=== PATIENT | male | born 2000 | race Two or more races ===

== ENCOUNTER 2024-12-05 13:59 | Emergency (ER) | payer MEDICAID, SELFPAY ==
[2024-12-05 14:19] VITALS: BP 120/79; PULSE 89; RESP 18; TEMP 36.9; O2SAT 99
--- NOTE | 2024-12-05 15:29 | PD.EDADULT ---
ED General RME/HPI General Chief complaint: Flu Like Symptoms Stated complaint: SEVERE NASAL CONGESTION W/ WATERY EYES X 7 DAYS Time Seen by Provider: 12/05/24 14:23 Source: patient Arrival date/time: 12/05/24 13:59 24-year-old male with no known medical history presents to the emergency room with a chief complaint of nasal congestion, sinus tenderness, watery eyes x 1 week Mode of arrival: ambulatory Limitations: no limitations Related Data Previous Rx's ?Medication ?Instructions ?Recorded acetaminophen 650 mg 650 mg PO Q8H PRN fever or pain 02/17/22 tablet,extended release #30 tabs ibuprofen 600 mg tablet 600 mg PO Q8H PRN fever or pain 02/17/22 #30 tabs prednisone 10 mg tablet 10 mg PO BID #6 tabs 06/14/22 ibuprofen 600 mg tablet 600 mg PO Q8H PRN fever or pain 12/09/23 #30 tabs loratadine 10 mg tablet 10 mg PO QDAY #30 tabs 12/09/23 amoxicillin 875 mg-potassium 1 tab PO BID 7 days #14 tabs 12/05/24 clavulanate 125 mg tablet Allergies Allergy/AdvReac Type Severity Reaction Status Date / Time No Known Allergies Allergy Verified 12/05/24 14:09 Review of Systems Review of Systems Systems Reviewed: All systems reviewed, normal except as documented Constitutional Constitutional: Reports system reviewed and no additional complaints, except as documented, Denies fatigue, Denies fever(s), Denies headache(s) and Denies weakness Eyes Eyes: Reports system reviewed and no additional complaints, except as documented, Denies blurry vision and Denies change in vision ENT Ears, Nose, Mouth, and Throat: Reports system reviewed and no additional complaints, except as documented, Denies otalgia, Denies headache(s), Denies nasal congestion, Reports post nasal drip, Reports sinus pain, Reports sinus pressure, Denies throat swelling and Denies vertigo Cardiovascular Cardiovascular: Reports system reviewed and no additional complaints, except as documented, Denies chest pain, Denies dyspnea and Denies dyspnea on exertion Respiratory Respiratory: Reports system reviewed and no additional complaints, except as documented, Denies chest congestion, Denies cough, Denies dyspnea, Denies dyspnea on exertion and Denies wheezing Gastrointestinal Gastrointestinal: Reports system reviewed and no additional complaints, except as documented, Denies abdominal pain, Denies cramping, Denies nausea and Denies vomiting Genitourinary Genitourinary: Reports system reviewed and no additional complaints, except as documented, Denies dysuria and Denies hematuria Musculoskeletal Musculoskeletal: Reports system reviewed and no additional complaints, except as documented and Denies back pain Integumentary/Breasts Skin/Breast: Reports system reviewed and no additional complaints, except as documented and Denies wounds Neurologic Neurologic: Reports system reviewed and no additional complaints, except as documented, Denies confusion, Denies headache(s), Denies lack of coordination, Denies vertigo and Denies weakness Psychiatric Psychiatric: Reports system reviewed and no additional complaints, except as documented, Denies anxiety, Denies confusion, Denies depression, Denies paranoia, Denies suicidal ideation and Denies tactile hallucinations Endocrine Endocrine: Reports system reviewed and no additional complaints, except as documented and Denies fatigue Hematologic/Lymphatic Hematologic/Lymphatic: Reports system reviewed and no additional complaints, except as documented and Denies lymphadenopathy Allergic/Immunologic Allergic/Immunologic: Reports system reviewed and no additional complaints, except as documented, Denies throat swelling, Denies urticaria and Denies wheezing Past Medical History Social History SMOKING STATUS: Current every day smoker ED Exam General Limitations: Present no limitations General appearance: Present alert and in no apparent distress Head Head exam: Present atraumatic Eye Eye exam: Present normal appearance, PERRL and EOMI ENT ENT exam: Present normal exam, normal oropharynx and mucous membranes moist Expanded ENT Exam Nose exam: Present sinus tenderness Neck Neck exam: Present normal inspection, full ROM and trachea midline Chest Chest inspection: Present normal inspection and symmetric chest wall rise Respiratory Respiratory exam: Present normal lung sounds bilaterally Cardiovascular Cardiovascular exam: Present regular rate, normal rhythm and normal heart sounds Abdominal Exam Abdominal exam: Present soft and normal bowel sounds Extremities Exam Extremities exam: Present normal inspection and full ROM Back Exam Back exam: Present normal inspection and full ROM Neurological Exam Neurological exam: Present alert, oriented X3 and CN II-XII intact Psychiatric Psychiatric exam: Present normal affect and normal mood Skin Skin exam: Present warm, dry, intact and normal color Course Quality Measures none Vital Signs Vital signs: Vital Signs Temperature 98.5 F 12/05/24 14:19 Pulse Rate 89 12/05/24 14:19 Respiratory Rate 18 12/05/24 14:19 Blood Pressure 120/79 04/22/25 14:19 Pulse Oximetry (%) 99 12/05/24 14:19 Oxygen Delivery Method Room Air 12/05/24 14:19 O2 saturation 99% within normal limits Discharge Plan Plan Patient Disposition: HOME (Self Care) Disposition Comment: stable Prescriptions/Referrals Prescriptions/Med Rec: New amoxicillin-pot clavulanate 875-125 mg tablet 1 tab PO BID 7 Days Qty: 14 0RF No Action acetaminophen 650 mg tablet extended release 650 mg PO Q8H PRN (Reason: fever or pain) Qty: 30 0RF Rx Instructions: swallow whole; do not chew/break/dissolve/open ibuprofen 600 mg tablet 600 mg PO Q8H PRN (Reason: fever or pain) Qty: 30 0RF prednisone 10 mg tablet 10 mg PO BID Qty: 6 0RF ibuprofen 600 mg tablet 600 mg PO Q8H PRN (Reason: fever or pain) Qty: 30 0RF loratadine 10 mg tablet 10 mg PO QDAY Qty: 30 0RF Problem List Clinical Impression: Sinusitis, acute Patient/Caregiver Discharge Instructions Education Materials: ED Sinusitis (Antibiotic Treatment) Additional Instructions: Por favor, consulte con caballero m?dico de cabecera en las pr?ximas 24 a 48 horas. Los antibi?ticos se env?an a caballero farmacia; rec?jalos y t?melos seg?n lo indicado. Si observa alg?n empeoramiento de los signos o s?ntomas, acuda a urgencias de inmediato. Print Language: Kazakh Stand Alone Forms: Leana Award Info., Work/School Release, Patient Portal Info Letter PA/DEPUTY SHERIFF CHIEF Supervising Physician PA/DEPUTY SHERIFF CHIEF Supervising Physician: Dr. Rick MDM Patient Acuity Low Acuity (complete MDM as needed) Narrative: 24-year-old male with no known medical history presents to the emergency room with a chief complaint of nasal congestion, sinus tenderness, watery eyes x 1 week Patient is hemodynamically stable in no apparent distress. He is afebrile not tachycardic not tachypneic and O2 saturation is 99% on room air Physical examination shows sinus tenderness with palpation. The patient is also congested and states that he is seen his primary care provider but they have only discharged home with medication for allergies which have not helped. Patient denies any other URI symptoms Patient was discharged and educated to follow-up with primary care provider in the next 24 to 48 hours and return to the emergency room for any evidence of worsening signs or symptoms Clinical Information Provided by: none Medical Records reviewed None Meds/Rx considered, not ordered None Labs/Rad/Tests considered, not ordered None Chronic Illness/Social Conditions which may negatively complicate care or outcome(s)-explain: None or not applicable EKG EKG not done Labs Labs: Interpreted by me Imaging Imaging interpretation: Interpreted by me Medication Administration(s) none Diagnosis Differential Diagnosis ED Complaint MDM: Sinusitis/upper respiratory infection/influenza/COVID-19 Diagnoses ruled out: Upper respiratory infection/influenza/COVID-19
== END 2024-12-05 14:42 | disposition home or self-care (01) ==
LOC: SERX 14:38
PROVIDERS: Emergency Provider Family Medicine
DX: J01.90 Acute sinusitis, unspecified (principal); F17.210 Nicotine dependence, cigarettes, uncomplicated
CPT/HCPCS: 99281